=== PATIENT | female | born 1990 | race Native Hawaiian/Other Pacific Islander ===

== ENCOUNTER 2017-02-19 00:31 | Emergency (ER) | payer SELFPAY ==
[2017-02-19 00:46] VITALS: RESP 20
[2017-02-19] MEDS ORDERED: Tmp-Smz 800 mg-160 mg DS Tab PO STA (02:06)
[2017-02-19] MEDS ORDERED: Tmp-Smz 800 mg-160 mg DS Tab ONE (02:24)
--- NOTE | 2017-02-19 02:27 | C.PDOC ---
History Of Present Illness 26 year old female presents to the ED with complaints of a red lump to her back for one day and two itchy red betancourt to her right index finger. Patient states she returned from [place] this morning and denies any injury, difficulty swallowing, or lip swelling. denies fever and chills. lump on back not painful. Time Seen by Provider: 02/19/17 01:35 Chief Complaint (Nursing): Abnormal Skin Integrity History Per: Patient History/Exam Limitations: no limitations Onset/Duration Of Symptoms: Days (1 day ) Current Symptoms Are (Timing): Still Present Location Of Injury: Right: Hand (index finger ), Posterior: Back Quality Of Symptoms: Itching Recent travel outside of the [place]: No Past Medical History Reviewed: Historical Data, Nursing Documentation, Vital Signs Vital Signs: Last Vital Signs Temp 98.1 F 02/19/17 02:39 Pulse 82 02/19/17 02:39 Resp 20 02/19/17 02:39 BP 120/67 02/19/17 02:39 Pulse Ox 100 02/20/17 19:31 Family History: States: Unknown Family Hx - Social History Hx Alcohol Use: No Hx Substance Use: No - Immunization History Hx Tetanus Toxoid Vaccination: No Hx Influenza Vaccination: No Hx Pneumococcal Vaccination: No Review Of Systems Constitutional: Negative for: Fever, Chills ENT: Negative for: Mouth Swelling, Throat Swelling Cardiovascular: Negative for: Chest Pain, Palpitations Respiratory: Negative for: Cough, Shortness of Breath Gastrointestinal: Negative for: Nausea, Vomiting Skin: Positive for: Other (red lump to back and red betancourt to right index ) Physical Exam - Physical Exam Appears: Non-toxic, No Acute Distress Skin: Warm, Dry, Other (3 cm round, elevated, erythematus area to right upper back with small patch of scabbed skin in the middle. It is non-tender and no warmth. Area of erythema circled wiht skin marker. 2 erythematous papules 0. 5 cm on right index finger. ) Head: Atraumatic, Normacephalic Chest: Symmetrical, No Deformity Cardiovascular: Rhythm Regular, No Murmur Respiratory: Normal Breath Sounds, No Rales, No Rhonchi, No Wheezing Extremity: Normal ROM, No Tenderness, No Calf Tenderness, Capillary Refill ( good capillary refill, less than two seconds ), No Swelling, Other (two individual erythematous itchy papules at the right 2nd PIP with no induration.) Neurological/Psych: Oriented x3 ED Course And Treatment O2 Sat by Pulse Oximetry: 100 (RA) Progress Note: Patient was given bactrim antibiotics and advised to return to ED in 2 days for further evaluation. Medical Decision Making Medical Decision Making: The two itchy papules on right finger may be insect bites. The lump on pt's back with area of scabbing may be a developing abscess; pt started on bactrim and advised to f/u in 2 days for wound check. Disposition Counseled Patient/Family Regarding: Rx Given - Disposition Referrals: [facility] at [facility] [Outside] Disposition: HOME/ ROUTINE Disposition Time: 02:25 Condition: STABLE Additional Instructions: Apply warm compresses several times a day to bump on back. Take antibiotics as prescribed. Return to ER in 2-3 days for wound check. Should fever develop, redness gets bigger, pain increases. return to ER. Prescriptions: Sulfamethoxazole/Trimethoprim [Bactrim DS 800 mg-160 mg] 1 tab PO BID #14 tab Instructions: Abscess (ED) Forms: [facility] (Kinyarwanda), General Discharge Instructions - Clinical Impression Clinical Impression: Abscess of back, Insect bites - PA / NURSE GYNECOLOGY / Resident Statement MD/DO has reviewed & agrees with the documentation as recorded. - Scribe Statement The provider has reviewed the documentation as recorded by the Scribrodriguez Mixon All medical record entries made by the Scribrodriguez were at my direction and personally dictated by me. I have reviewed the chart and agree that the record accurately reflects my personal performance of the history, physical exam, medical decision making, and the department course for this patient. I have also personally directed, reviewed, and agree with the discharge instructions and disposition.
[2017-02-19 02:40] VITALS: BP 120/67; PULSE 82; TEMP 98.1
[2017-02-19 06:38] VITALS: O2SAT 100
== END 2017-02-19 02:40 | disposition home or self-care (01) ==
LOC: C.ER 00:31
DX: L02.212 Cutaneous abscess of back [any part, except buttock and flank] (principal); S60.460A Insect bite (nonvenomous) of right index finger, initial encounter; W57.XXXA Bitten or stung by nonvenomous insect and other nonvenomous arthropods, initial encounter

== ENCOUNTER 2017-04-22 00:13 | Emergency (ER) | payer SELFPAY ==
[2017-04-22 01:06] VITALS: BP 94/69; PULSE 80; RESP 14; TEMP 97.7; O2SAT 100
--- NOTE | 2017-04-22 01:23 | C.PDOC ---
History Of Present Illness 26 year old female presents to the ER with a complaint of scattered hives throughout her body. Denies difficulty breathing or difficulty swallowing. Chief Complaint (Nursing): Abnormal Skin Integrity History Per: Patient History/Exam Limitations: no limitations Onset/Duration Of Symptoms: Hrs Current Symptoms Are (Timing): Still Present Quality Of Symptoms: Itching Past Medical History Reviewed: Historical Data, Nursing Documentation, Vital Signs Vital Signs: Last Vital Signs Temp 97.7 F 04/22/17 01:00 Pulse 80 04/22/17 01:00 Resp 14 04/22/17 01:00 BP 94/69 L 04/22/17 01:00 Pulse Ox 100 04/22/17 01:26 - Medical History PMH: No Chronic Diseases Surgical History: No Surg Hx Family History: States: Unknown Family Hx - Social History Hx Alcohol Use: No Hx Substance Use: No - Immunization History Hx Tetanus Toxoid Vaccination: No Hx Influenza Vaccination: No Hx Pneumococcal Vaccination: No Review Of Systems ENT: Negative for: Mouth Swelling, Throat Swelling Respiratory: Negative for: Shortness of Breath, Wheezing Skin: Positive for: Rash Physical Exam - Physical Exam Appears: Non-toxic, No Acute Distress Skin: Warm, Dry, Rash (Scattered hives to trunk and extremities) Head: Atraumatic, Normacephalic Eye(s): bilateral: Normal Inspection Oral Mucosa: Moist Chest: Symmetrical, No Tenderness Cardiovascular: Rhythm Regular, No Murmur Respiratory: Normal Breath Sounds, No Rales, No Rhonchi, No Stridor, No Wheezing Gastrointestinal/Abdominal: Soft, No Tenderness Extremity: Normal ROM (x4) Neurological/Psych: Oriented x3, Normal Speech, Other (No focal deficits) ED Course And Treatment O2 Sat by Pulse Oximetry: 100 (Room air) Pulse Ox Interpretation: Normal Progress Note: Benadryl and prednisone administered. Disposition Counseled Patient/Family Regarding: Diagnosis - Disposition Referrals: [facility] at [facility] [Outside] Disposition: HOME/ ROUTINE Disposition Time: :22 Condition: STABLE Additional Instructions: to use IVORY soap for cleansibg clothes to use LOWELA HYPOALLERGENIC soap. Prescriptions: DiphenhydrAMINE [Benadryl] 25 mg PO Q6 #20 cap Methylprednisolone [Medrol Dose Pack (21 tabs)] 4 mg PO DAILY #21 mg Instructions: Urticaria (GEN) Forms: [email or web address] [facility] (Kyrgyz) - POA Present On Arrival: None - Clinical Impression Clinical Impression: Urticaria - Scribe Statement The provider has reviewed the documentation as recorded by the Scribrodriguez Bae All medical record entries made by the Scribe were at my direction and personally dictated by me. I have reviewed the chart and agree that the record accurately reflects my personal performance of the history, physical exam, medical decision making, and the department course for this patient. I have also personally directed, reviewed, and agree with the discharge instructions and disposition.
== END 2017-04-22 01:38 | disposition home or self-care (01) ==
LOC: C.ER 00:13
DX: L50.9 Urticaria, unspecified (principal)

== ENCOUNTER 2017-07-03 18:52 | Emergency (ER) | payer SELFPAY ==
--- NOTE | 2017-07-03 21:50 | C.PDOC ---
History Of Present Illness 26 y/o female presents to the ED for evaluation of right wrist pain which began around 1 week ago. Patient states the pain is worse with movement and with flexion of her right thumb. She denies direct injury/trauma to the site and extremity numbness/weakness at this time. Time Seen by Provider: 07/03/17 20:28 Chief Complaint (Nursing): Upper Extremity Problem/Injury History Per: Patient History/Exam Limitations: no limitations Onset/Duration Of Symptoms: Other (1 week ) Current Symptoms Are (Timing): Still Present Quality: "Pain" Exacerbating Factor(s): Movement, Other (flexion of right thumb ) Additional History Per: Patient Past Medical History Reviewed: Historical Data, Nursing Documentation, Vital Signs Vital Signs: Last Vital Signs Temp 99 F 07/03/17 20:10 Pulse 79 07/03/17 20:10 Resp 18 07/03/17 20:10 BP 101/65 07/03/17 20:10 Pulse Ox 98 07/03/17 22:14 - Medical History PMH: No Chronic Diseases Surgical History: No Surg Hx Family History: States: Unknown Family Hx - Social History Hx Alcohol Use: No Hx Substance Use: No - Immunization History Hx Tetanus Toxoid Vaccination: No Hx Influenza Vaccination: No Hx Pneumococcal Vaccination: No Review Of Systems Musculoskeletal: Positive for: Other (right wrist pain ) Neurological: Negative for: Weakness, Numbness Physical Exam - Physical Exam Appears: Non-toxic, No Acute Distress Skin: Normal Color, Warm, Dry, No Other (erythema ) Extremity: Normal ROM, Tenderness (to right 1st MCP joint and over groove between right thumb and forefinger. ), Capillary Refill (less than 2 seconds ), No Swelling, No Other (wrist tenderness ) Neurological/Psych: Normal Speech, Normal Cognition, Normal Motor, Normal Sensation ED Course And Treatment O2 Sat by Pulse Oximetry: 98 (on RA) Pulse Ox Interpretation: Normal Progress Note: Right wrist XR ordered. Results show no facture or dislocation. Motrin PO administered. On reassessment, patient is resting comfortably, showing no signs of disress and reports an improvement in her pain. Patient is stable for discharge and is advised thumb spica splint for support and to follow up with her PMD within 1-2 days for further evaluation. Reassessment Condition: Improved Disposition - Disposition Referrals: [facility] at [facility] [Outside] Disposition: HOME/ ROUTINE Disposition Time: 21:46 Condition: STABLE Additional Instructions: Continue Advil 2- 3 tabs every 6hr Buy "THUMB SPICA" FOR SUPPORT RETURN TO ER IF WORSE Instructions: Finger Sprain (ED) Forms: [facility] (Upper Sorbian) - Clinical Impression Clinical Impression: Sprain of hand, thumb, right - PA / INVESTIGATIVE ANALYST / Resident Statement MD/DO has reviewed & agrees with the documentation as recorded. - Scribe Statement The provider has reviewed the documentation as recorded by the Scribe (Colleen Posada) All medical record entries made by the Scribe were at my direction and personally dictated by me. I have reviewed the chart and agree that the record accurately reflects my personal performance of the history, physical exam, medical decision making, and the department course for this patient. I have also personally directed, reviewed, and agree with the discharge instructions and disposition.
[2017-07-03 22:30] VITALS: BP 109/74; PULSE 63; RESP 20; TEMP 97.6
--- NOTE | 2017-07-04 09:16 | RAD ---
PROCEDURE: Right Wrist Radiographs. HISTORY: pain, right wrist COMPARISON: None. FINDINGS: BONES: Normal. No fracture. JOINTS: Normal. No dislocation. SOFT TISSUES: Normal. OTHER FINDINGS: None. IMPRESSION: Normal right wrist radiographs.
[2017-07-05 03:59] VITALS: O2SAT 98
== END 2017-07-03 22:30 | disposition home or self-care (01) ==
LOC: SUPCPDRO 18:52 → C.ER 18:52
DX: S63.601A Unspecified sprain of right thumb, initial encounter (principal); X58.XXXA Exposure to other specified factors, initial encounter